=== PATIENT | male | born 1930 | race Caucasian/White ===

== ENCOUNTER 2017-12-30 12:30 | Inpatient (IN) | payer MEDICARE ==
[2018-01-11] MEDS ORDERED: CEFAZOLIN 2 GM/50 ML BAG ONE (06:03)
[2018-01-11] MEDS ORDERED: Tranexamic Acid 1,000 MG/10 ML VIAL ONE (06:03)
[2018-01-11] MEDS ORDERED: Sodium Chloride 0.9% 100 ML ONE (06:03)
[2018-01-11] MEDS ORDERED: Vancomycin HCl 1.5 GM in Sodium Chloride 0.9% 250 ML 300 ML IVPB SCH (06:15)
[2018-01-11] MEDS ORDERED: Midazolam HCl 2 mg/2 ml Vial ONE (06:25)
[2018-01-11] MEDS ORDERED: Lidocaine 1% (PF) 30 ML VIAL ONE (06:25)
[2018-01-11] MEDS ORDERED: Fentanyl 100 MCG/2 ML VIAL ONE (06:25)
[2018-01-11] MEDS ORDERED: Promethazine HCl 25 MG/ML VIAL IM PRN ×3 (06:58→07:47)
[2018-01-11] MEDS ORDERED: HYDROcodone/Acetaminophen 10/325 mg Tablet PO PRN ×2 (06:58)
[2018-01-11] MEDS ORDERED: traMADol HCl 50 MG TAB PO PRN ×3 (06:58→07:21)
[2018-01-11] MEDS ORDERED: Ondansetron PF 4 MG/2 ML Vial IVP PRN ×2 (06:58→07:21)
[2018-01-11] MEDS ORDERED: Zolpidem Tartrate 5 MG TAB PO PRN ×2 (06:58→07:21)
[2018-01-11] MEDS ORDERED: Fentanyl 100 MCG/2 ML VIAL SLOW IVP PRN (06:58)
[2018-01-11] MEDS ORDERED: diphenhydrAMINE 25 MG CAP PO PRN (06:58)
[2018-01-11] MEDS ORDERED: CEFAZOLIN/Water 2 GM/20 ML SYRINGE SLOW IVP SCH (07:00)
[2018-01-11] MEDS ORDERED: Fentanyl 100 MCG/2 ML VIAL IV PRN (07:22)
[2018-01-11] MEDS ORDERED: HYDROcodone/Acetaminophen 7.5/325 mg Tablet PO PRN ×2 (07:24)
[2018-01-11] MEDS ORDERED: Ondansetron HCl/PF 4 MG/2 ML Vial IVP PRN (07:47)
[2018-01-11] MEDS ORDERED: Promethazine HCl 25 MG/ML VIAL SLOW IVP PRN (07:47)
[2018-01-11] MEDS: Aspirin 81 mg Enteric Coated Tablet PO SCH ×2 (09:00→21:32)
[2018-01-11] MEDS: Bisoprolol Fumarate 5 MG TAB PO SCH (09:00)
--- NOTE | 2018-01-11 09:29 | RAD ---
TWO VIEWS LEFT KNEE: History: Status post arthroplasty. Comparison: None. FINDINGS: Post-operative change compatible with left knee arthroplasty. IMPRESSION: Expected post-operative changes. POS: EZRA
--- NOTE | 2018-01-11 09:36 | OP ---
PREOPERATIVE DIAGNOSIS: Left knee degenerative arthritis. POSTOPERATIVE DIAGNOSIS: Left knee degenerative arthritis. TITLE OF PROCEDURE: Left total knee arthroplasty using a [place] [employer] 5 femur, 5 tibia, 9 mm CS X3 polyethylene, and A32 patella. SURGEON: Brayden Nunez M.D. LIME KILN WORKER: John Sharp PA-C. BLOOD LOSS: Minimal. SPECIMEN: None. DRAINS: None. COMPLICATIONS: None. TOURNIQUET TIME: 49 minutes. PROCEDURE IN DETAIL: After informed consent was obtained in the preoperative holding area. The miya ent was taken to the operative suite where general anesthesia was induced. Once adequate level of ge neral anesthesia was obtained, the patient was positioned and a well-padded tourniquet was placed meg und the left proximal thigh. The left lower extremity was then prepped and draped in the usual steri le fashion. Prior to exsanguination, a time out was called and all members of the surgical team agre ed upon site, surgeon, and patient. The extremity was then exsanguinated and the tourniquet was rais ed. A midline longitudinal incision was then made directly over the patella extending two fingerbrea dths above the superior pole of the patella and two fingerbreadths inferior to the inferior patellar pole of the patella. Deeper subcutaneous layers were dissected sharply and local bleeding was contro lled with Bovie electrocautery. A quad tendon longitudinal split was then made sharply and a median parapatellar arthrotomy was carried out both sharp and with Bovie electrocautery, carried down to one fingerbreadth medial to the tibial tubercle. The knee was then placed into flexion and the patella was everted nicely, and a copious fat pad ectomy was performed allowing for greater exposure of the t ibia. The computer-assisted distal femoral fiducial was then placed and pinned firmly, and the dista l femoral cutting guide was pinned firmly into place. The oscillating saw was then used to remove th e appropriate amount of bone. The 4-in-1 cutting block was then placed on the distal femur and the o scillating saw was used to remove the appropriate amount of bone off of the anterior, posterior, and chamfer cuts. After completion of bone cuts, the anterior cruciate ligament was resected sharply and the posterior cruciate ligament retractor was placed and the tibia was subluxed for better exposure. Partial meniscectomies were carried out, and the tibial computer-assisted fiducial was pinned, and the cutting guide was placed. Oscillating saw was then used to remove the bone with Hohmann retracto rs used to take care and protect the collateral ligaments. After the tibial resection was performed, a laminar animal breeder was placed in between the freshened bone cuts. The knee placed at 90 degrees and further bilateral meniscectomies were carried out, and the curved osteotome and curettage was used t o remove any excess bone spurs in the posterior compartment. The trial femoral component, tibial bas eplate were placed with the appropriate polyethylene trial insert with an appropriate polyethylene sp acer and patellar button. The knee was taken through full range of motion with flexion and extension from 0-90 degrees and patellar broach squarely in the trochlea without any squinting or subluxation noted. The knee was also stable to varus and valgus stressing at 0, 15, 45, and 90 degrees of flexio n. The drawer was negative. All trial components were then removed and the keel punch was used to p rovide the appropriate defect in the tibia with a mallet. The freshened bone cuts were copiously irr igated with pulsatile lavage of about 1-1/2 liters to remove all excess debris. The freshened bone c uts were then dried and with suction and lap sponge. The knee was placed in flexion and retractors w ere placed to provide access to all bone cuts. Tobramycin impregnated methyl methacrylate cement was then placed on the freshened bone cuts and implants which were malleted firmly into place. Curettag e and [employer] elevators were used to remove any excess bone cement. The knee was placed into full exte nsion and the patellar button was placed under compression, and the cement was allowed to cure. Once completed, the components were again taken through full range of motion and copious irrigation of th e knee was carried out with another liter of normal saline. All components were inspected fully with full range of motion and varus and valgus stressing. There was no laxity noted and full extension w as observed clinically. Primary closure was accomplished with #2 interrupted Vicryl stitch of the ar throtomy defect. This was oversewn with a #2 running Quill barbed stitch. The gravitational platele t system was then injected into the arthrotomy prior to closure. The subcutaneous layer was then joana sed with a running 0 barbed Monocryl stitch and skin closure accomplished with a running subcuticular 3-0 Monocryl barbed Quill stitch and augmented with cement on the skin. Tourniquet was lowered. Go od spontaneous return of distal pulses was noted clinically and a sterile dressing was applied to the incision. The procedure was terminated without any complications. The patient was awakened in the operative suite and the tourniquet was removed, and the patient was taken to the recovery room in sta ble condition.
[2018-01-11] MEDS ORDERED: Dextrose 50% Abboject 50 ML SYRINGE SLOW IVP PRN (10:26)
[2018-01-11] MEDS ORDERED: Dextrose 5% in Water 1,000 ML IV PRN (10:26)
--- NOTE | 2018-01-11 11:29 | CON ---
DATE OF CONSULTATION: 01/11/2018 PRIMARY CARE PHYSICIAN: Primary care physician is listed as ____. REQUESTING PROVIDER: Dr. Brayden Nunez REASON FOR CONSULTATION: Medical management post left total knee arthroplasty. TIME OF SERVICE: 10:30. HISTORY OF PRESENT ILLNESS: Mr. Odonnell is a pleasant 87-year-old gentleman who is status post left to kalani knee arthroplasty, postop day 0 at [facility]. We have been consulted postopera tive for medical management of his multiple medical problems including diabetes and hypertension. Today, he underwent a left total knee arthroplasty with no noted intraoperative complications and cur natalietly has no complaints. He denies any fever or chills. No chest pain, shortness of breath, no cynthia sea, vomiting, diarrhea, constipation. He is diabetic, but takes glimepiride only. He has not required insulin in the past. He is on bisop rolol and lisinopril for blood pressure management, takes lovastatin for his hyperlipidemia and Eliqu is for paroxysmal atrial fibrillation. PAST MEDICAL HISTORY: 1. Paroxysmal atrial fibrillation. 2. Symptomatic gastroesophageal reflux disease. 3. Chronic cough. 4. Peripheral neuropathy. 5. Seasonal allergies. 6. Noninsulin dependent diabetes mellitus type 2. 7. Osteoarthritis, diffuse. 8. History of cataracts, status post bilateral intraocular lens placement. 9. Depression. PAST SURGICAL HISTORY: None. HOME MEDICATIONS: 1. Eliquis 5 mg p.o. b.i.d., currently on hold. 2. Bisoprolol 5 mg p.o. q.a.m. 3. Vitamin D3 1000 units daily. 4. Glimepiride 4 mg daily in the morning. 5. Ibuprofen 400 mg p.o. q.6 hours p.r.n. 6. Lisinopril 40 mg p.o. q.a.m. 7. Lovastatin 40 mg p.o. q.a.m. ALLERGIES: METFORMIN. SOCIAL HISTORY: Significant for daily wine. Never a tobacco smoker. No IV drug use. No recent tra estela. He is , monogamous. His accompanies him. The plans are for him to return home pos t-discharge. FAMILY HISTORY: Significant for coronary artery disease, diabetes, and different types of cancers. REVIEW OF SYSTEMS: All systems reviewed and negative except stated as per HPI. PHYSICAL EXAMINATION: VITAL SIGNS: Temperature currently is 97.5, pulse 64, blood pressure 135/75, respiration rate 18, sa tting 100% on room air. GENERAL: He is awake. He is alert. He is oriented x3. He is well-developed, well-nourished, elder ly white male, appears age appropriate, appears to be in no acute distress. HEENT: Normocephalic, atraumatic. Pupils equal, round, and reactive to light bilaterally. Mucous m embranes are moist. No visible lesion or thrush. NECK: Supple. There is no lymphadenopathy, JVD, or thyromegaly. He has normal carotid upstroke. I do not appreciate a bruit. CHEST: Lungs are clear. He has good air movement. Symmetrical chest excursion. No wheeze, no rale s, no rhonchi. No prolonged expiratory phase. CARDIOVASCULAR: Normal S1, S2. Normal cardiac and regular. I do not appreciate any murmurs. ABDOMEN: Soft, it is nontender, nondistended, no mass or organomegaly. EXTREMITIES: Reveal no cyanosis, no clubbing. There is a trace pedal edema bilaterally. His left k nee is currently in a postop dressing, it was not removed. SCDs are in place. SKIN: Warm, moist, well-perfused. There is no other mass or lesion. MUSCULOSKELETAL: Otherwise negative. NEUROLOGIC: Shows cranial nerves II-XII grossly intact. He is oriented to person and place. Hard o f hearing in both ears. He has no focal neurologic deficits and 4-5/5 strength in all 4 extremities. LABORATORY DATA: Preoperatively CBC showed a white blood cell count of 6.5, hemoglobin 15.7, hematoc rit of 49.1 and platelet count of 176,000 and that was approximately 7 days ago. He did have a david l differential. INR was 1.0 on 01/04/2018. BMP was within normal limits. Creatinine 1.30. Sodium 137, potassium 4.7. A urinalysis showed 4-6 white blood cells, 4-6 red cells, and no epithelial cell s. He was negative for nitrite, negative for bacteria. ASSESSMENT AND PLAN: 1. Coronary artery disease. 2. Chronic obstructive pulmonary disease. 3. Paroxysmal atrial fibrillation. 4. Hypertension 5. Hyperlipidemia. 6. Osteoarthritis status post left total knee arthroplasty, postop day 0. We will continue home medications. We have added insulin sliding scale q.i.d. a.c. and at bedtime Ac cu-Cheks and we will also continue the Amaryl. We will put that on hold if he is able to tolerate p. o. Thank you very much for this consult. I will follow along with you.
[2018-01-11] MEDS: Glimepiride 4 MG TAB PO SCH (14:06)
[2018-01-11] MEDS: Sodium Chloride 0.9% 1,000 ML IV SCH ×2 (14:09→17:06)
[2018-01-11] MEDS: Lisinopril 20 MG TAB PO SCH (14:10)
[2018-01-11] MEDS ORDERED: Ropivacaine 0.2% HCl/PF (40 MG/20 ML VIAL) ONE (15:50)
[2018-01-11] MEDS ORDERED: Ropivacaine 0.5% HCl/PF (150 MG/30 ML VIAL) ONE (15:50)
[2018-01-11] MEDS ORDERED: Bupivacaine 0.25% HCL 30 ML VIAL ONE (15:50)
[2018-01-11] MEDS ORDERED: PROPOFOL 200 MG/20 ML VIAL ONE (16:46)
[2018-01-11] MEDS ORDERED: PHENYLEPHRINE-NS 100 MCG/ML 10 ML SYRINGE ONE (16:46)
[2018-01-11] MEDS ORDERED: Ondansetron PF 4 MG/2 ML Vial ONE (16:46)
[2018-01-11] MEDS ORDERED: Lidocaine 1% PF 5 ML VIAL ONE (16:46)
[2018-01-11] MEDS: CEFAZOLIN 2 GM/50 ML-DEXTROSE 2 GM in Premix Bag 1 BAG IVPB SCH ×2 (17:19→23:46)
[2018-01-11] MEDS: HumaLOG 300 UNITS/3 ML VIAL SC PRN (17:22)
[2018-01-11] MEDS ORDERED: Prevnar 13-Val Conj/PF 0.5 ML SYRINGE IM ONE (21:00)
[2018-01-11] MEDS: Atorvastatin Calcium 10 MG TAB PO SCH (21:32)
[2018-01-12] MEDS: Sodium Chloride 0.9% 1,000 ML IV SCH ×3 (02:03→21:47)
[2018-01-12 04:42] LABS: Hemoglobin 13.1 g/dL (14.0-18.0); Mean Corpuscular HGB CONC 33.7 g/dL (32.0-36.0); Mean Corpuscular Hemoglobin 31.6 pg (27.0-31.0); Mean Corpuscular Volume 93.8 fL (78.0-98.0); Platelet Count 167 thou/uL (130-400); RBC Distribution Width 11.7 % (11.5-14.5); Red Blood Cell (RBC) Count 4.15 mill/uL (4.70-6.10); White Blood Cell (WBC) Count 9.5 thou/uL (4.8-10.8)
[2018-01-12] MEDS: HumaLOG 300 UNITS/3 ML VIAL SC PRN ×4 (06:26→21:14)
--- NOTE | 2018-01-12 08:12 | PDOC.PN ---
- Subjective Encounter Start Date: 01/12/18 Encounter Start Time: 08:10 Mr. Odonnell was seen today in follow-up of medical management following Left TKR. He does not have any complaints today, and denies chest pain or shortness of breath. - Objective MAR Reviewed: Yes Vital Signs & Weight: Vital Signs (12 hours) Temp Pulse Resp BP Pulse Ox 01/12/18 08:04 98.7 F 75 16 138/72 96 01/12/18 04:00 98.8 F 95 18 126/80 94 L 01/12/18 00:00 99.5 F 98 16 124/84 94 L Weight Weight 206 lb I&O: 01/11/18 01/12/18 01/13/18 06:59 06:59 06:59 Intake Total 2230 Output Total 1350 Balance 880 Result Diagrams: 01/12/18 03:38 Additional Labs: Accuchecks 01/12/18 01/11/18 01/11/18 05:30 21:12 16:07 POC Glucose 168 H 131 H 213 H 01/11/18 11:33 POC Glucose 142 H Phys Exam - Physical Examination HEENT: PERRLA Respiratory: no wheezing, no rales, no rhonchi, clear to auscultation bilateral Cardiovascular: no significant murmur, no rub, irregular Gastrointestinal: soft, non-tender, no distention, positive bowel sounds Musculoskeletal: no edema, pulses present Neurological: non-focal, moves all 4 limbs Dx/Plan (1) Hypertension Code(s): I10 - ESSENTIAL (PRIMARY) HYPERTENSION Status: Chronic (2) Diabetes mellitus type 2 in nonobese Code(s): E11.9 - TYPE 2 DIABETES MELLITUS WITHOUT COMPLICATIONS Status: Chronic (3) Status post total left knee replacement Code(s): Z96.652 - PRESENCE OF LEFT ARTIFICIAL KNEE JOINT Status: Acute (4) Atrial fibrillation, permanent Code(s): I48.2 - CHRONIC ATRIAL FIBRILLATION Status: Chronic - Plan * HTN- blood pressure is controlled * AFIB- his hear rate is stable- Eliquis is on hold due to recent surgery * DM- blood glucose is stable * Continue PT/OT.
[2018-01-12] MEDS: Aspirin 81 mg Enteric Coated Tablet PO SCH ×2 (09:08→20:48)
[2018-01-12] MEDS: Multivitamin W/ Minerals 1 TAB PO SCH (09:08)
[2018-01-12] MEDS: Senokot S 8.6-50 MG TAB PO SCH ×2 (09:08→20:48)
[2018-01-12] MEDS: Glimepiride 4 MG TAB PO SCH (09:08)
[2018-01-12] MEDS: Ferrous Gluconate 324 MG TAB PO SCH ×2 (09:08→20:48)
[2018-01-12] MEDS: Lisinopril 20 MG TAB PO SCH (09:08)
[2018-01-12] MEDS: Acetaminophen 325 MG TAB PO PRN ×2 (09:19→17:24)
[2018-01-12] MEDS: Bisoprolol Fumarate 5 MG TAB PO SCH (11:01)
[2018-01-12] MEDS: Ropivacaine HCl/PF 250 ML in Premix Bag 1 BAG NERVE BLCK SCH (12:02)
[2018-01-12 14:26] VITALS: BMI 27.1
[2018-01-12] MEDS: Atorvastatin Calcium 10 MG TAB PO SCH (20:48)
[2018-01-13 05:47] LABS: Hemoglobin 13.4 g/dL (14.0-18.0); Mean Corpuscular HGB CONC 33.1 g/dL (32.0-36.0); Mean Corpuscular Hemoglobin 31.3 pg (27.0-31.0); Mean Corpuscular Volume 94.5 fL (78.0-98.0); Platelet Count 176 thou/uL (130-400); RBC Distribution Width 11.9 % (11.5-14.5); Red Blood Cell (RBC) Count 4.27 mill/uL (4.70-6.10); White Blood Cell (WBC) Count 10.8 thou/uL (4.8-10.8)
[2018-01-13] MEDS: Multivitamin W/ Minerals 1 TAB PO SCH (08:07)
[2018-01-13] MEDS: Bisoprolol Fumarate 5 MG TAB PO SCH (08:07)
[2018-01-13] MEDS: Ferrous Gluconate 324 MG TAB PO SCH ×2 (08:07→20:54)
[2018-01-13] MEDS: Aspirin 81 mg Enteric Coated Tablet PO SCH ×2 (08:07→20:54)
[2018-01-13] MEDS: Senokot S 8.6-50 MG TAB PO SCH ×2 (08:07→20:52)
[2018-01-13] MEDS: Glimepiride 4 MG TAB PO SCH (08:07)
[2018-01-13] MEDS: Lisinopril 20 MG TAB PO SCH (08:20)
[2018-01-13] MEDS: Acetaminophen 325 MG TAB PO PRN (10:07)
[2018-01-13] MEDS: Sodium Chloride 0.9% 1,000 ML IV SCH ×2 (10:27→23:19)
[2018-01-13] MEDS: HumaLOG 300 UNITS/3 ML VIAL SC PRN ×3 (12:00→21:01)
--- NOTE | 2018-01-13 13:18 | PDOC.PN ---
- Subjective Encounter Start Date: 01/13/18 Encounter Start Time: 13:16 Mr. Odonnell was seen today in follow-up of medical management following Knee replacement surgery. He does not have any complaints. He notes an occasional cough, but otherwise ok. - Objective MAR Reviewed: Yes Vital Signs & Weight: Vital Signs (12 hours) Temp Pulse Resp BP BP BP Pulse Ox 01/13/18 11:18 98.1 F 75 16 108/70 97 01/13/18 08:20 146/71 H 01/13/18 08:00 97 01/13/18 07:52 98.4 F 91 16 146/71 H 97 01/13/18 04:20 98.9 F 90 18 137/81 93 L Weight Admit Weight 206 lb Weight 206 lb I&O: 01/12/18 01/13/18 01/14/18 06:59 06:59 06:59 Intake Total 2230 1005 600 Output Total 2057 716 2232 Balance 880 475 -500 Result Diagrams: 01/13/18 04:59 Additional Labs: Accuchecks 01/13/18 01/13/18 01/12/18 11:18 06:02 21:00 POC Glucose 194 H 128 H 245 H 01/12/18 16:33 POC Glucose 280 H Phys Exam - Physical Examination HEENT: PERRLA Respiratory: no wheezing, no rales, no rhonchi, clear to auscultation bilateral Cardiovascular: RRR, no significant murmur, no rub Gastrointestinal: soft, non-tender, no distention, positive bowel sounds Musculoskeletal: no edema Dx/Plan (1) Hypertension Code(s): I10 - ESSENTIAL (PRIMARY) HYPERTENSION Status: Chronic (2) Diabetes mellitus type 2 in nonobese Code(s): E11.9 - TYPE 2 DIABETES MELLITUS WITHOUT COMPLICATIONS Status: Chronic (3) Status post total left knee replacement Code(s): Z96.652 - PRESENCE OF LEFT ARTIFICIAL KNEE JOINT Status: Acute (4) Atrial fibrillation, permanent Code(s): I48.2 - CHRONIC ATRIAL FIBRILLATION Status: Chronic - Plan * HTN- blood pressure is stable * AFIB- heart rate is stable. Eliquis is on hold due to recent surgery * DM- blood glucose is stable * Continue PT/OT
[2018-01-13] MEDS: Ropivacaine HCl/PF 250 ML in Premix Bag 1 BAG NERVE BLCK SCH (14:45)
[2018-01-13] MEDS: Atorvastatin Calcium 10 MG TAB PO SCH (20:54)
[2018-01-14] MEDS: Sodium Chloride 0.9% 1,000 ML IV SCH (07:13)
[2018-01-14] MEDS: Bisoprolol Fumarate 5 MG TAB PO SCH (09:33)
[2018-01-14] MEDS: Aspirin 81 mg Enteric Coated Tablet PO SCH (09:33)
[2018-01-14] MEDS: Multivitamin W/ Minerals 1 TAB PO SCH (09:34)
[2018-01-14] MEDS: Glimepiride 4 MG TAB PO SCH (09:34)
[2018-01-14] MEDS: Ferrous Gluconate 324 MG TAB PO SCH (09:34)
[2018-01-14] MEDS: Lisinopril 20 MG TAB PO SCH (09:34)
[2018-01-14] MEDS: Senokot S 8.6-50 MG TAB PO SCH (09:34)
[2018-01-14 12:32] VITALS: BP 134/76; TEMP 98.3
== END 2018-01-14 15:10 | disposition home health service (06) | DRG 470 ==
LOC: SURG A 01-11 05:36 → SJJU 01-11 09:01
PROVIDERS: ADMIT Orthopaedic Surgery; ATTEND Orthopaedic Surgery
PROC: 0SRD0J9 Replacement of Left Knee Joint with Synthetic Substitute, Cemented, Open Approach (ICD-10-PCS; principal; 2018-01-11)
PROC: 3E0T3BZ Introduction of Anesthetic Agent into Peripheral Nerves and Plexi, Percutaneous Approach (ICD-10-PCS; 2018-01-11)
DX: M17.12 Unilateral primary osteoarthritis, left knee (principal); I10 Essential (primary) hypertension; Z79.01 Long term (current) use of anticoagulants; Z79.84 Long term (current) use of oral hypoglycemic drugs; I48.0 Paroxysmal atrial fibrillation; K21.9 Gastro-esophageal reflux disease without esophagitis; E11.42 Type 2 diabetes mellitus with diabetic polyneuropathy; J30.2 Other seasonal allergic rhinitis; F32.9 Major depressive disorder, single episode, unspecified; Z98.42 Cataract extraction status, left eye; Z98.41 Cataract extraction status, right eye; Z96.1 Presence of intraocular lens; Z88.8 Allergy status to other drugs, medicaments and biological substances; I25.10 Atherosclerotic heart disease of native coronary artery without angina pectoris; J44.9 Chronic obstructive pulmonary disease, unspecified; E78.00 Pure hypercholesterolemia, unspecified; E78.2 Mixed hyperlipidemia
CPT/HCPCS: 36415; 36416; 85027; C1713; C1776; G8978-GP-CK; G8979-GP-CI; J2001; J2250; J2405; J2704; J2795; J3010; J3370; J7050; S0020